=== PATIENT | female | born 1940 | race Caucasian/White ===

== ENCOUNTER 2017-10-18 09:48 | Day surgery (SDC) | payer MEDICARE, OTHER ==
[~2017-10-18] VITALS: Ht 157.5 cm; Wt 83.9 kg
[~2017-10-18 09:48] MED LIST: ADRENAL OR; ALTERIL PO; AMBIEN CR12.5 MG OR; AMOXICILLIN/CL875 MG PO; ATENOLOL25 MG PO; AUGMENTIN875TAB OR; AUGMENTIN875TAB PO; BACTRIM DS1 TAB PO; BIOTIN PO; BL IBUPROFEN200 MG PO; BORON3 MG; CA CITRATE250 MG; CALCIUM600 M1 PO; CALTRATE 603 OR; CHLORTHALID25 MG OR; CHOLEST OFF OR; CIPROFLOXACN500 MG PO; CLARITIN RDT10 MG OR; CLARITIN10 M1 PO; CO Q-10200 MG OR; COQ-10100 M1 PO; CRANBERRY1 TA1 PO; CRANBERRY500 MG PO; CRESTOR10 MG PO; CULTURELL1 OR; CYCLOBENZAPR5 MG PO; DECONGESTANT PO; DHA ALGAL-900300 MG PO; DIFLUCAN150 MG OR; DIPHEN/ATROP2.5 MG PO; ESTRACE VAG0.1 MG/GM VA; FISH OIL1200 M1 OR; FLEXERIL5 MG OR; FLEXERIL5 MG PO; FLONASE NASAL50 MCG; FORTIFY DAILY P1 CAP PO; HYDROCHLOROT25 MG PO; IMITREX50 M1 OR; IMITREX50 M1 PO; IMITREX50 MG PO; KRILL OIL1000 MG PO; MAGNESIU XX; MAPAP ARTHRI650 MG PO; MELATONIN MAXIM10 MG PO; METROGEL VAG0.75 % VA; MUCINEX600 MG PO; NAPROXEN SOD220 M3 PO; NAPROXEN250 MG PO; NIACIN PO; NIACIN250 M4 PO; OSTEO BI-FLE OR; OSTEO BI-FLE PO; PREDNISONE10 MG PO; PREVACID15 M1 OR; RED YEAST PO; SMZ-TMP DS1 TAB PO; SUDAFED 24HR1 TAB OR; SUDAFED30 MG PO; SUMATRIPTAN25 MG PO; TESSALON200 MG PO; TOBRAMYCIN0.3 % OP; TUMERIC PO; TURMERIC CURCU500 MG PO; VIBRAMYCIN100 M2 PO; VITAMIN C500 MG PO; VITAMIN D PO; VITAMIN D2000 UNIT OR; ZYRTEC10 M5 PO; ZYRTEC10 MG PO; [UNRECOGNIZED DRUG - OTHER] EX; [UNRECOGNIZED DRUG - OTHER] OR; [UNRECOGNIZED DRUG - OTHER] PO
[2017-10-18 11:32] VITALS: BP 120/62
== END 2017-10-18 11:55 | disposition home or self-care (01) ==
LOC: ENDO 09:48
PROVIDERS: ATTEND Surgery
PROC: 0DBL8ZX Excision of Transverse Colon, Via Natural or Artificial Opening Endoscopic, Diagnostic (ICD-10-PCS; principal; 2017-10-18)
DX: Z12.11 Encounter for screening for malignant neoplasm of colon (principal); D12.3 Benign neoplasm of transverse colon; K57.30 Diverticulosis of large intestine without perforation or abscess without bleeding; Z87.891 Personal history of nicotine dependence; Z80.0 Family history of malignant neoplasm of digestive organs

== ENCOUNTER → 2018-07-03 | Outpatient (REF) | payer MEDICARE, OTHER ==
[2018-07-03 11:46] LABS: HEMATOCRIT 43.1 % (37.0-47.0); HEMOGLOBIN 13.7 g/dl (12.0-16.0); MEAN CELL VOLUME 90.2 fL CALC (80.0-100.0); MEAN CORPUSCULAR HGB 28.7 pG CALC (26.0-32.0); MEAN CORPUSCULAR HGB CONC 31.8 g/L CALC (32.0-36.0); RED BLOOD COUNT 4.78 mill/uL (4.20-5.60); RED CELL DISTRI WIDTH 13.2 % (11.5-15.5)
[2018-07-03 12:09] LABS: ALBUMIN 4.5 g/dL (3.2-5.0); ALKALINE PHOSPHATASE 67 u/l (38-126); ANION GAP 15 (6-22 (CALC)); BILIRUBIN, TOTAL 0.6 mg/dL (0.0-1.4); BUN 17 mg/dL (8-23); BUN/CREATININE RATIO 21 (12-20 (CALC)); CALCULATED LDLCHOLESTEROL 98 mg/dL (62-129 (CALC)); CARBON DIOXIDE 27 mmol/l (22-30); CHLORIDE 104 mmol/l (95-108); CHOLESTEROL HDL RATIO 3.7 (<4.4 (CALC)); CREATININE 0.8 mg/dL (0.5-1.0); GFR > 60 ML/MIN (>=60 (CALC)); GFR FOR AFR.AMER. > 60 ML/MIN (>=60 (CALC)); HDL CHOLESTEROL 47 mg/dL (>=40); POTASSIUM 4.2 mmol/l (3.5-5.1); SGOT/AST 40 u/l (9-36); SODIUM 142 mmol/l (137-146); TOTAL CHOLESTEROL 173 mg/dl (0-199); TOTAL PROTEIN 7.6 g/dL (6.3-8.2); TOTAL TRIGLYCERIDES 139 mg/dl (30-149); VLDL CHOLESTROL 28 mg/dl (0-48 (CALC))
== END | disposition home or self-care (01) ==
LOC: LAB 11:13
PROVIDERS: ATTEND Nurse Practitioner Adult Health
DX: E78.2 Mixed hyperlipidemia (principal); R94.5 Abnormal results of liver function studies; R79.9 Abnormal finding of blood chemistry, unspecified

== ENCOUNTER 2019-04-13 10:57 | Emergency (ER) | payer MEDICARE, OTHER ==
[~2019-04-13] VITALS: Ht 157.5 cm; Wt 75.0 kg
[2019-04-13] MEDS ORDERED: CEPHALEXIN500 M1 PO (11:33)
[2019-04-13 11:45] LABS: URINE BILIRUBIN - DIPSTICK NEGATIVE (NEGATIVE); URINE BLOOD DIPSTICK LARGE (NEGATIVE); URINE COLOR YELLOW; URINE GLUCOSE - DIPSTICK NEGATIVE (NEGATIVE); URINE KETONE NEGATIVE (NEGATIVE); URINE PH 6.5 (4.5-8.0); URINE PROTEIN - DIPSTICK TRACE mg/dL (NEG-TRACE); URINE SPECIFIC GRAVITY <=1.005; URINE UROBILINOGEN - DIPSTICK 0.2 E.U./dL (0.2)
[2019-04-13 11:50] VITALS: BP 142/68
[2019-04-13 11:50] LABS: URINE LEUK ESTERASE LARGE (NEGATIVE); URINE NITRITE - DIPSTICK POSITIVE (Negative)
[2019-04-13 11:53] LABS: URINE BACTERIA MODERATE hpf; URINE RBC TNTC RBC/hpf (0-5); URINE SQUAMOUS EPITHELIAL CELL FEW EPI/hpf (0-FEW); URINE WBC TNTC WBC/hpf (0-5)
== END 2019-04-13 11:55 | disposition home or self-care (01) ==
LOC: ED 10:57
PROVIDERS: Family Medicine
DX: N39.0 Urinary tract infection, site not specified (principal); B96.20 Unspecified Escherichia coli [E. coli] as the cause of diseases classified elsewhere

== ENCOUNTER 2022-08-22 07:26 | Day surgery (SDC) | payer MEDICARE, OTHER ==
[~2022-08-22] VITALS: Ht 157.5 cm; Wt 80.3 kg
[~2022-08-22 07:26] MED LIST changes: +ALDACTONE50 MG PO; +ASPIRINCHW 81MG PO; +CEPHALEXIN500 M1 PO; +FAMOTIDINE20 M1 PO; +TRAZODONE100 MG PO
[2022-08-22] MEDS ORDERED: D-MANNOSE500 MG PO (07:53)
[2022-08-22 13:26] VITALS: BP 161/75
== END 2022-08-22 10:50 | disposition home or self-care (01) ==
LOC: ENDO 07:26 → ORM 09:50 → ENDO 09:50 → ORM 10:15 → ENDO 10:50 → ORM 11:00
PROVIDERS: ATTEND Internal Medicine Gastroenterology
PROC: 0DBL8ZX Excision of Transverse Colon, Via Natural or Artificial Opening Endoscopic, Diagnostic (ICD-10-PCS; principal; 2022-08-22)
DX: D12.3 Benign neoplasm of transverse colon (principal); K57.30 Diverticulosis of large intestine without perforation or abscess without bleeding; K64.8 Other hemorrhoids; Z86.010 Personal history of colon polyps

== ENCOUNTER 2022-10-03 09:48 | Day surgery (SDC) | payer MEDICARE, OTHER ==
[~2022-10-03] VITALS: Ht 157.5 cm; Wt 80.3 kg
[~2022-10-03 09:48] MED LIST changes: +D-MANNOSE500 MG PO; +MONTELUKAST SOD10 MG PO; +MULTI VIT PO; +SLOW-MAG PO
[2022-10-03 13:42] VITALS: BP 119/65
== END 2022-10-03 13:25 | disposition home or self-care (01) ==
LOC: ENDO 09:48 → ORM 09:55 → ENDO 13:25 → ORM 14:35 → ENDO 14:35
PROVIDERS: ATTEND Internal Medicine Gastroenterology
PROC: 0DB48ZX Excision of Esophagogastric Junction, Via Natural or Artificial Opening Endoscopic, Diagnostic (ICD-10-PCS; principal; 2022-10-03)
PROC: 0DB78ZX Excision of Stomach, Pylorus, Via Natural or Artificial Opening Endoscopic, Diagnostic (ICD-10-PCS; 2022-10-03)
DX: K29.70 Gastritis, unspecified, without bleeding (principal); K21.9 Gastro-esophageal reflux disease without esophagitis; K31.9 Disease of stomach and duodenum, unspecified; Z86.010 Personal history of colon polyps; E78.00 Pure hypercholesterolemia, unspecified

== ENCOUNTER 2024-05-24 10:41 | Emergency (ER) | payer MEDICARE, OTHER ==
[2024-05-24] VITALS (8 sets, daily range): BP systolic 111–158; BP diastolic 52–71
[~2024-05-24] VITALS: Ht 157.5 cm; Wt 84.0 kg
[~2024-05-24 10:41] MED LIST changes: +KEFLEX500 MG PO
[2024-05-24] MEDS ORDERED: NAPROXEN500 MG PO (12:06)
== END 2024-05-24 12:19 | disposition home or self-care (01) ==
LOC: ED 10:41
DX: M17.0 Bilateral primary osteoarthritis of knee (principal)